=== PATIENT | female | born 1955 | race Two or more races ===

== ENCOUNTER 2017-12-28 01:53 | Emergency (ER) | payer MEDICAID, OTHER ==
[~2017-12-28] VITALS: Ht 165.1 cm; Wt 108.9 kg
[2017-12-28] MEDS ORDERED: SODIUM BICARBONATE 8.4% INJ 50ML SYRINGE IV ONE (02:01)
[2017-12-28] MEDS ORDERED: EPINEPHrine HCL 1 MG/10 ML SYRG IV ONE (02:01)
[2017-12-28] MEDS ORDERED: D5W 5% 100 ML BAG IV ONE (02:01)
[2017-12-28] MEDS ORDERED: CALCIUM CHLOR(10%) 100MG/ML 10ML SYRINGE IV ONE (02:01)
== END 2017-12-28 05:53 | disposition expired ==
LOC: EDBD 01:53 → ER 02:00
DX: I46.9 Cardiac arrest, cause unspecified (principal); C56.9 Malignant neoplasm of unspecified ovary; C78.7 Secondary malignant neoplasm of liver and intrahepatic bile duct
CPT/HCPCS: 92950; 99285; J0171; J7060